=== PATIENT | male | born 1955 | race Caucasian/White ===

== ENCOUNTER 2017-10-08 08:04 | Day surgery (SDC) | payer BC ==
[~2017-10-08 08:04] MED LIST: Lactated Ringers 1,000 ML IV ONE; Lactated Ringers 1,000 ML IV SCH
[2017-10-08] MEDS ORDERED: DIPRIVAN 200 MG/20 ML IV ONE (08:05)
[2017-10-08] MEDS ORDERED: Ketamine HCl 50 MG/ML IV ONE (08:05)
--- NOTE | 2017-10-08 09:37 | HP ---
DATE OF SURGERY: 10/08/2017 HISTORY OF PRESENT ILLNESS: The patient is 62 year-old with reflux for the past ten years, worse recently despite proton pump inhibitor. Last upper endoscopy was years ago. PAST MEDICAL HISTORY: Hypertension, reflux. Hyperglycemia in the past. PAST SURGICAL HISTORY: Bowel surgical repair. Neck surgery. Lipoma removed in the past. MEDICATIONS: Gabapentin, Singulair, tizanidine, Protonix, lisinopril. ALLERGIES: NKDA. FAMILY HISTORY: Negative. SOCIAL HISTORY: No smoking or alcohol abuse. REVIEW OF SYSTEMS: Twelve systems reviewed per admission assessment. No chest pain or palpitations other systems negative or noncontributory as above and per preadmission questionnaire. PHYSICAL EXAMINATION: GENERAL: No acute distress. HEENT: Sclerae nonicteric. NECK: No JVD. CHEST: Equal excursion, nonlabored breathing. CVS: Regular rate and rhythm. ABDOMEN: Soft. No peritoneal signs. EXTREMITIES: No significant edema. NEURO: Alert, oriented, moving extremities symmetrically. No gross motor deficits noted. IMPRESSION: Worsening reflux, some dysphagia, I feel the patient will benefit from EGD, possible biopsy, possible dilatation, risk and benefits explained in detail including but not limited to bleeding or infection, small risk of bowel injury or perforation possibly requiring open procedure, small risk of missed or nondiagnosis or incomplete exam possibly requiring barium swallow, other studies or procedures, possibility this procedure may not improve his symptoms, possibility that he have a narrowed area that might benefit from dilatation that he might have to have that repeated in the future, possibly requiring open procedure, ongoing morbidity/mortality but not limited to. He understands and agrees to the planned procedure and will proceed with outpatient EGD possible biopsy, possible dilatation as an outpatient.
[2017-10-08 11:35] VITALS: O2SAT 95
[2017-10-08 12:01] VITALS: BP 154/95; PULSE 78
--- NOTE | 2017-10-09 09:09 | OP ---
SURGERY DATE/TIME: 10/08/2017 1035 PREOPERATIVE DIAGNOSIS: Increased reflux, heartburn, epigastric discomfort. POSTOPERATIVE DIAGNOSIS: Mild gastritis. PROCEDURES: 1) EGD with cold biopsy of small bowel to evaluate for sprue. 2) Cold biopsy of the stomach to evaluate for Helicobacter pylori. 3) Random cold biopsies distal esophagus to evaluate for eosinophilic esophagitis or other etiology. SURGEON: Dr. Keagan Billingsley. ANESTHESIA: MAC. ESTIMATED BLOOD LOSS: Minimal. INDICATIONS: As noted above. Risks and benefits explained in detail and not limited to and consent obtained. DESCRIPTION OF PROCEDURE AND FINDINGS: The patient is taken to the endoscopy room. MAC anesthesia introduced. After official time out and no disagreement with planned procedure, a bite block positioned. Video gastroscope easily passed down the esophagus through the gastroesophageal junction about 40 cm to the patent pylorus to the junction of the second and third portion of the duodenum. There had been some mild gastritis passing through the stomach. No signs of any ulcers or any signs of any signs of any other masses or other nodules. The scope was able to be passed into the small bowel. No etiology of his symptoms was noted. It was elected to go ahead and biopsy small bowel for celiac sprue. Cold biopsy taken of small bowel to evaluate for celiac sprue. The scope pulled back into the stomach. Cold biopsy taken in the stomach to evaluate for Helicobacter pylori. Good hemostasis noted. On retroflex gastroesophageal junction is fairly snug against the scope. There did not appear to be any evidence of any obvious significant hiatal hernia on retroflex of the scope. The scope is straightened. Gastroesophageal junction noted to be about 40 cm. Z-line was crisp. No signs of any esophagitis. No signs of any masses or mucosal lesions. Because of the degree of his symptoms random cold biopsy was taken throughout the esophagus to evaluate for microscopic or eosinophilic esophagitis or other etiology. Good hemostasis noted. There did not appear to be any obvious significantly narrowed area in the upper or lower esophagus. He had not been reporting any specific area that had caused any problems with any food hanging up and as there is not any specific narrowed area currently it was felt he did not warrant any need for any dilatation art this time. The scope is withdrawn. The scope was withdrawn. The patient tolerated the procedure well. Findings discussed with the family out in the waiting area. As there was no significant etiology of his symptoms other than some mild gastritis found on endoscopy and he has not had a recent gallbladder ultrasound will check gallbladder ultrasound and do some biliary work up to look up for other etiology of his symptoms.
== END 2017-10-08 12:00 | disposition home or self-care (01) ==
LOC: SDC 08:04
PROVIDERS: ATTEND Surgery
PROC: 0DB38ZX Excision of Lower Esophagus, Via Natural or Artificial Opening Endoscopic, Diagnostic (ICD-10-PCS; principal; 2017-10-08)
PROC: 0DB88ZX Excision of Small Intestine, Via Natural or Artificial Opening Endoscopic, Diagnostic (ICD-10-PCS; 2017-10-08)
PROC: 0DB68ZX Excision of Stomach, Via Natural or Artificial Opening Endoscopic, Diagnostic (ICD-10-PCS; 2017-10-08)
DX: K29.70 Gastritis, unspecified, without bleeding (principal); K21.9 Gastro-esophageal reflux disease without esophagitis; R12 Heartburn; R10.13 Epigastric pain; I10 Essential (primary) hypertension; Z79.899 Other long term (current) drug therapy
CPT/HCPCS: 00731; J2704